=== PATIENT | female | born 1990 | race Caucasian/White ===

== ENCOUNTER → 2017-11-02 14:56 | Outpatient (CLI) | payer OTHER, MEDICAID, SELFPAY ==
[2017-11-03 17:00] LABS: Strep Grp B PCR NEG for Grp B Strep
== END ==
PROVIDERS: Visit Provider Obstetrics & Gynecology
DX: Z34.83 Encounter for supervision of other normal pregnancy, third trimester (principal)
CPT/HCPCS: 87653

== ENCOUNTER 2017-11-19 05:47 | Inpatient (IN) | payer OTHER, MEDICAID, SELFPAY ==
[2017-11-19] VITALS (7 sets, daily range): BP systolic 110–129; BP diastolic 58–75; PULSE 62–69; RESP 16; TEMP 36.1–36.2; O2SAT 95–98
--- NOTE | 2017-11-19 06:39 | PM.PREOP ---
Pre-operative Note Interval Note Pre-op Check: History & Physical Reviewed by Physician
[2017-11-19 07:29] LABS: Add Manual Diff / Slide Review NO; Basophils Percent Auto 0.2 % (0-2); Eosinophils Percent Auto 7.5 % (2-4); Hematocrit 33.6 % (36-46); Hemoglobin 11.8 g/dL (12.0-16.0); Mean Corpuscular HGB Conc 35.1 % (30-36); Mean Corpuscular Hemoglobin 30.1 PG (26-34); Mean Corpuscular Volume 85.9 fL (80-100); Monocytes Percent Auto 6.4 % (3-14); Neutrophils Absolute Auto 6400 /uL (3000-5900); Neutrophils Percent Auto 65.9 % (50-75); Platelet Count 243 X10^3/uL (150-400); Red Blood Cell Count 3.92 X10^6/uL (4.0-5.2); Red Cell Distribution Width 12.9 % (11.6-14.8); White Blood Cell Count 9.8 X10^3/uL (4.5-11.0)
[2017-11-19] MEDS: CEFAZOLIN 2 GM/100 ML FROZ.PIGGY IV (08:10)
--- NOTE | 2017-11-19 08:33 | SUR.OPER ---
Supine on Padded OR bed, head on pillow, safety belt at thigh, arms secured on padded arm boards at <90 degrees abduction. Bump under right buttock. Legs uncrossed with pillow under knees, gel pad to heels, tape over blanket to lower legs.
--- NOTE | 2017-11-19 09:05 | SUR.OPER ---
Healthy boy born at 0833. heart tones 152.
[2017-11-19] MEDS: LACTATED RINGERS 1,000 ML 100 ML IV (10:43)
--- NOTE | 2017-11-19 10:55 | P.OP_ITS ---
Operative Date/Time/Diagnoses - Date of procedure: 11/19/17 Time of procedure: 09:52 Pre-op diagnosis: Intrauterine at estimated gestational age of 39 weeks Previous section x2 Post-op diagnosis: same Procedure: Procedures Operation Date: 11/19/17 07:45 Actual Procedures Side Surgeon p Section - Repeat Aura Moya MD Indications: Estimated gestational age of 39 weeks 2 prior section Surgeon: Aura Moya Equipment Operation Instructor: Marisol Vasquez Anesthesia Type: Spinal (With dermal) Operative Notes Findings: Live male in the vertex presentation Normal uterus, tubes, and ovaries Closure Type: primary Specimen(s): other (Cord blood, placenta) Applied: catheter Estimated blood loss (mL): 500 Blood products transfused: none Procedure in detail: The patient was taken to the operating room where she was placed in the seated position. Spinal anesthesia with Duramorph was administered. The patient was then placed in the dorsal supine position with a leftward tilt. She was prepped and draped in the usual sterile fashion. A timeout was performed. After spinal analgesia was found to be adequate, the previous incision was excised in an elliptical fashion, and the incision was carried down to the underlying layer of fascia. The fascia was nicked in the midline, and the incision extended bilaterally with the Victoria scissors. The superior aspect of the fascial incision was grasped with a Armida clamps, elevated, and the underlying rectus muscles dissected off sharply and bluntly. Attention was then turned to the inferior aspect of this incision which in a similar fashion was grasped with a Leiter clamps, elevated, and the underlying rectus muscles dissected off sharply and bluntly. The rectus muscles were in the midline. The peritoneum was identified, grasped between 2 hemostats, and entered sharply with the Metzenbaum scissors. This incision was extended superiorly and inferiorly with good visualization of the bladder. The bladder blade was inserted. The vesicouterine peritoneum was identified, grasped with the pickup, and entered sharply with the Metzenbaum scissors. This incision was extended bilaterally, and the bladder flap was created digitally. The bladder blade was reinserted. The lower uterine segment was incised in a transverse fashion with the scalpel. Upon entering the amniotic sac there was moderate amount of clear amniotic fluid. The 's head was delivered without difficulty. The nose and mouth were suctioned with bulb suction. The remainder of the body delivered without difficulty. The cord was double clamped and cut. The was handed off to waiting RN and RT. The placenta was delivered manually. The uterus was cleared of all clots and debris. The uterine incision was repaired with #1 chromic in a running interlocking fashion, and a second layer the same suture was used for an imbricating layer. Hemostasis was achieved. The tubes and ovaries were examined and were found to be normal. The gutters were cleared of all clots and debris. The bladder flap was reapproximated using 2-0 Vicryl in a running fashion. The parietal peritoneum was closed using 2-0 Vicryl in a running fashion. The fascia was reapproximated using 0 Vicryl in a running fashion. The subcutaneous layer was copiously irrigated with warm normal saline. 5 simple interrupted sutures of 3-0 Vicryl were placed to reapproximate the subcutaneous layer. The skin was closed with 4-0 undyed Vicryl in a subcuticular fashion. Steri-Strips were placed. An Aquacell dressing was placed. The uterus was expressed of a small amount of old blood. Sponge, lap, and instrument counts were correct x-2. The patient tolerated the procedure well, and was taken to PACU in stable condition. Complications: none Post-operative Condition: stable Disposition: PACU ([facility])
[2017-11-19] MEDS: ONDANSETRON 4 MG/2 ML INJ IV (14:21)
[2017-11-19] MEDS: KETOROLAC 30 MG/ML VIAL IV ×2 (17:30→23:30)
[2017-11-19] MEDS: LANOLIN OINT 7 GM 1 APPLIC TOP (20:03)
[2017-11-20 05:20] LABS: Hematocrit 27.4 % (36-46); Hemoglobin 9.7 g/dL (12.0-16.0)
[2017-11-20] MEDS: KETOROLAC 30 MG/ML VIAL IV (05:54)
[2017-11-20] MEDS: DOCUSATE 250 MG CAPSULE PO (08:38)
[2017-11-20] MEDS: PRENATAL VIT,CALC/IRON/FOLIC 1 TABLET 1 TAB PO (08:38)
[2017-11-20] MEDS: IBUPROFEN 600 MG TABLET PO ×2 (15:44→21:40)
[2017-11-20] MEDS: OXYCODONE/ACETAMINOPHEN 5/325 TABLET 1 TAB PO ×2 (15:46→21:40)
[2017-11-21] MEDS: OXYCODONE/ACETAMINOPHEN 5/325 TABLET 1 TAB PO ×3 (02:10→13:29)
[2017-11-21] MEDS: IBUPROFEN 600 MG TABLET PO ×2 (04:03→13:29)
[2017-11-21] MEDS: PRENATAL VIT,CALC/IRON/FOLIC 1 TABLET 1 TAB PO (09:36)
[2017-11-21] MEDS: DOCUSATE 250 MG CAPSULE PO (09:36)
[2017-11-21 10:04] VITALS: BP 129/75; PULSE 65; RESP 16; TEMP 36.1
--- NOTE | 2017-11-21 13:57 | PM.OBPN.1 ---
Subjective - OB Interval history: Patient has been able to void without the catheter Tolerating a diet. She has showered. going well. Patient comments: no complaints, pain well controlled, tolerating diet and flatus present baby status: doing well feeding status: exclusively breast feeding Date Patient Seen: 11/20/17 Time Patient Seen: 11:30 Exam Vital Signs (past 8 hours): - 11/21/17 10:04 Temperature 97.0 F L Pulse Rate 65 Respiratory Rate 16 Blood Pressure 129/75 H Oxygen Delivery Method Room Air Narrative Exam Narrative: Generally: Patient is sitting up in bed, holding , no acute distress Lungs: Clear to auscultation bilaterally Cardiovascular: Regular rate and rhythm Abdomen: Soft and flat. Good bowel sounds Fundus: Firm at U -1 Incision: Clean dry and intact with Aquacel dressing Extremities: Negative Homans, no edema Objective Labs Result Diagrams: 11/20/17 04:56 Assessment & Plan (1) Status post repeat low transverse section: Status: Acute Assessment and plan: Assessment: 27-year-old 3 para 3 postop day # 1 status post repeat low-transverse section doing well Plan: Continue routine postop care Anticipate discharge 11/21/2017 Current Visit: Yes Plan day: 1 plan OB: routine postop care Time Spent With Patient Total time spent is greater than 50% in coordination of care (as documented) at patient's floor/unit and/or counseling patient: less than 15 minutes
--- NOTE | 2017-11-21 14:01 | PM.OBDS.1 ---
Discharge Providers Date of admission: 11/19/17 05:47 Consults: 11/19/17 13:36 Consult to [employer] Routine Comment: Discharge provider: Aura Moya MD Discharge Date: 11/21/17 Summary Date Patient Seen: 11/21/17 Time Patient Seen: 09:20 Hospital Course: Patient is a 27-year-old 3 para 3 who presented on 11/19/2017 for a scheduled repeat low-transverse section. She underwent the section without complication. Her postoperative course was unremarkable. Hematocrit 27.4. Tolerating a diet. Ambulating without assistance. Voiding without the catheter. Patient has showered. Peripartum Data Delivery Method: Section Procedures: Repeat low-transverse section complications: none Discharge Diagnosis (1) Status post repeat low transverse section: Status: Acute Status at Discharge Functional status at discharge: independent ambulation Overall status at discharge: patient is progressing back to baseline Time Spent with Patient Total time spent providing and/or coordinating discharge services: Less than 30 minutes Objective Labs Result Diagrams: 11/20/17 04:56 Discharge Plan Discharge Plan Patient Disposition: Home, Self-Care Discharge comment: Call with fever, chills or redness or drainage around incision Discharge Med Rec/Prescriptions Prescriptions: New oxycodone-acetaminophen [Percocet] 5-325 mg tablet 2 tab PO Q4-6H PRN (Reason: pain) Qty: 30 RF: 0 ibuprofen 600 mg tablet 600 mg PO QID PRN (Reason: pain) Qty: 30 RF: 2 Continue vit-iron fum-folic ac [Mynatal] 1 EACH capsule 1 cap PO QDAY Qty: 0 RF: 0 Follow up/Referrals: Aura Moya MD [Physician] - 1 Week Provider Discharge Instructions Diet: Diet as Tolerated Activity: No intercourse No heavy lifting Wound Care Report to your healthcare provider any signs of infection, such as:: chills, fever, increased pain and unusual drainage Dressing: Do not remove Visit Report/Discharge Packet Instructions: DI for Visit Report Forms: Stroke Signs & Symptoms Discharge Data Attending Provider: Aura Moya Admit Date/Time: 11/19/17 05:47
== END 2017-11-21 14:25 | disposition home or self-care (01) | DRG 540 ==
PROVIDERS: Admitting Provider Obstetrics & Gynecology; Visit Provider Obstetrics & Gynecology
PROC: 10D00Z2 Extraction of Products of Conception, Extraperitoneal, Open Approach (ICD-10-PCS; CPT 59514; principal; 2017-11-19 07:45)
DX: O34.211 Maternal care for low transverse scar from previous cesarean delivery (principal); Z3A.39 39 weeks gestation of pregnancy; Z37.0 Single live birth
CPT/HCPCS: 36415; 59050; 59514; 85014; 85018; 85025; 86850; 86900; 86901; J0690; J1885; J2274; J2405; J2590

== ENCOUNTER 2018-09-02 17:24 | Emergency (ER) | payer SELFPAY ==
[2018-09-02 17:34] VITALS: BP 122/75; PULSE 60; RESP 15; TEMP 37; O2SAT 100; BMI 18.8
--- NOTE | 2018-09-02 18:05 | ED.EYEPROB ---
HPI - Eye Problem General Chief complaint: Eye Problems Stated complaint: left eye red and puffy Time Seen by Provider: 09/02/18 17:30 Source: patient and family Mode of arrival: ambulatory Limitations: no limitations History of Present Illness HPI Narrative: 27-year-old female nonsmoker without any medical problems presents with her and small child in the chief complaint of redness, irritation and watering to her left. She denies any injury. She denies any suspected foreign body. She denies any exposure to ill persons with similar symptoms. she has not been sick and denies runny nose, sore throat or cough. She denies any eye pain. SHe does wear contacts MD chief complaint: eye redness Onset (ago): hour(s) Onset description: gradual Duration: constant Location: left eye Eye Symptoms: redness, foreign body sensation, itching and blurry vision Mechanism: none Severity: mild Context: contact lens use Treatments Prior to Arrival: none Related Data Patient tetanus UTD: Yes Previous Rx's Medication Instructions Recorded norethindrone 1.5 mg-ethinyl 1 tab PO DAILY #28 tab 04/18/18 estradiol 30 mcg(21)/iron 75 mg(7) tablet polymyxin B sulf-trimethoprim 1 drop EYE-LEFT QID 7 Days ml 09/02/18 Allergies Allergy/AdvReac Type Severity Reaction Status Date / Time No Known Allergies Allergy Verified 01/04/18 15:21 Review of Systems Constitutional Denies chills, Denies fever(s), Denies lethargy and Denies weakness Eyes Reports blurry vision, Denies change in vision, Denies eye discharge, Denies irritation and Denies loss of vision ENT Ears, Nose, Mouth, and Throat: Denies change in voice, Denies neck pain and Denies sore throat Cardiovascular Denies chest pain, Denies irregular heart rhythm, Denies lightheadedness, Denies palpitations, Denies dyspnea, Denies dyspnea on exertion and Denies orthopnea Respiratory Denies cough, Denies dyspnea, Denies dyspnea on exertion and Denies wheezing Gastrointestinal Gastrointestinal: Denies abdominal pain, Denies change in bowel habits, Denies diarrhea, Denies nausea and Denies vomiting Genitourinary Denies hematuria, Denies flank pain, Denies urinary incontinence and Denies urinary urgency Musculoskeletal Denies neck pain Integumentary/Breasts Denies pruritus, Denies erythema, Denies rash and Denies wounds Neurologic Denies confusion, Denies loss of vision and Denies weakness Psychiatric Denies anxiety, Denies confusion, Denies depression, Denies homicidal ideation and Denies suicidal ideation Endocrine Denies palpitations Hematologic/Lymphatic Denies easy bruising Allergic/Immunologic Denies wheezing [facility] Medical History Chicken pox (Resolved 1998) 3 (Resolved) MRSA infection (Resolved 2009) Preeclampsia (Resolved 2013) Preeclampsia, severe (Resolved 2011) Surgical History Anesthesia (Resolved) History of dental surgery (Resolved ) History of tonsillectomy (Resolved 2008) S/P section (Resolved 11/19/17) Status post delivery (Resolved 2011) Status post delivery (Resolved 2013) Family History Brother Age: 31 Asthma Brother Age: 27 Hypertension Father Age: 65 Hypertension Grandfather Age: 82 Skin cancer Diabetes mellitus Social History Smoking Status: Never smoker Family History Brother Age: 31 Asthma Brother Age: 27 Hypertension Father Age: 65 Hypertension Grandfather Age: 82 Skin cancer Diabetes mellitus Social History Smoking Status: Never smoker Exam Narrative Exam Narrative: GEN: AOx3 and in mild distress EYES: Pupils are equal, round, and reactive to light and accommodation. Extraoccular muscles are intact bilaterally. Scleral injection of L eye with minimal chemosis. Pressure 22mmHg. Eye visualized under molina lamp, no FB noted. Upper lid everted. No fluorescein uptake CHEST: Lungs are clear to auscultation bilaterally and free of wheezes, rales, or rhonchi. Heart rate is regular rhythm, there are no murmurs, clicks, rubs, or gallops. There is no chest wall tenderness. ABD: Abdomen is soft and nontender. There is no guarding or rebound. Bowel sounds are normal in all 4 quadrants. There is no mass or organomegaly. EXT: Full painless ROM of all extremities with no loss of sensation or strength. SKIN: Warm, pink, and dry. No erythema or rash Initial Vital Signs Initial Vital Signs: Vital Signs Temperature 98.6 F 09/02/18 17:34 Pulse Rate 60 09/02/18 17:34 Respiratory Rate 15 09/02/18 17:34 Blood Pressure 122/75 09/02/18 17:34 Pulse Oximetry 100 09/02/18 17:34 Course Vital Signs - 8 hr 09/02/18 17:34 Temperature 98.6 F Pulse Rate 60 Respiratory Rate 15 Blood Pressure 122/75 Pulse Oximetry 100 MDM - Eye Problem Differential Diagnosis Likely conjunctivitis, hyphema, subconjunctival hemorrhage, glaucoma, corneal ulcer and ruptured globe MDM Narrative Medical decision making narrative: Multiple etiologies for patient's symptoms considered including: [Acute angle closure glaucoma, corneal ulcer, conjunctivitis, preseptal cellulitis corneal abrasion, corneal foreign body versus other] Patient's symptoms improved or duration of stay with above-stated therapies. Findings and discharge diagnosis discussed with patient/family followed by verbalization of understanding Return precautions discussed with patient/family whom verbalize understanding. Discharge Plan Departure Patient Disposition: Home Clinical Impression: Chemosis of left conjunctiva Discharge Date/Time: 09/02/18 18:07 Instructions: Conjunctivitis Activity Restrictions/Additional Instructions: *You have been diagnosed with [left eye chemosis and possible conjunctivitis. We considered infection of the skin surrounding her eye but thought it less likely given lack of warmth or pain ] *What to do: *Take medications as directed * please follow-up with the Ophthal[facility] at [facility]. You may present directly to the clinic at 8:30 a.m. in the morning or call for a better idea when they conceived tomorrow *Return to ER if you should have any new, worsening or concerning symptoms *Do not wear contacts until seen by ophtho Prescriptions: New polymyxin B sulf-trimethoprim 10,000 unit- 1 mg/mL drops 1 drop EYE-LEFT QID 7 Days RF: 0 No Action norethindrone-e.estradiol-iron [Loestrin Fe 1.5/30 (28-Day)] 1.5 mg-30 mcg (21)/75 mg (7) tablet 1 tab PO DAILY Qty: 28 RF: 11 Referrals: Faviola Carvalho MD [Physician] -
== END 2018-09-02 18:07 | disposition home or self-care (01) ==
PROVIDERS: Emergency Provider Emergency Medicine
DX: H11.422 Conjunctival edema, left eye (principal)
CPT/HCPCS: 99282; 99283

== ENCOUNTER → 2020-07-01 09:50 | Outpatient (CLI) | payer OTHER, MEDICAID, SELFPAY ==
[2020-07-01 12:16] LABS: HCG Quantitative /Beta subunit 37291 mIU/mL
== END ==
PROVIDERS: PCP Family Medicine; Referring Provider Obstetrics & Gynecology; Visit Provider Obstetrics & Gynecology
DX: Z34.81 Encounter for supervision of other normal pregnancy, first trimester (principal)
CPT/HCPCS: 36415; 84702

== ENCOUNTER → 2020-07-22 12:30 | Outpatient (CLI) | payer OTHER, MEDICAID, SELFPAY ==
[2020-07-22 13:58] LABS: Add Manual Diff / Slide Review NO; Basophils Absolute Auto 0 /uL (0-100); Basophils Percent Auto 0.3 % (0-2); Eosinophils Absolute Auto 500 /uL (0-450); Eosinophils Percent Auto 5.8 % (2-4); Hematocrit 38.2 % (36-46); Hemoglobin 13.2 g/dL (12.0-16.0); Lymphocytes Absolute Auto 1600 /uL (1100-4500); Lymphocytes Percent Auto 18.1 % (25-40); Mean Corpuscular HGB Conc 34.6 % (30-36); Mean Corpuscular Hemoglobin 29.5 PG (26-34); Mean Corpuscular Volume 85.3 fL (80-100); Monocytes Absolute Auto 500 /uL (0-900); Monocytes Percent Auto 6.1 % (3-14); Neutrophils Absolute Auto 6200 /uL (1500-7000); Neutrophils Percent Auto 69.7 % (50-75); Platelet Count 292 X10^3/uL (150-400); Red Blood Cell Count 4.47 X10^6/uL (4.0-5.2); Red Cell Distribution Width 13.6 % (11.6-14.8); White Blood Cell Count 8.9 X10^3/uL (4.5-11.0)
[2020-07-22 14:11] LABS: Appearance Urine UA CLEAR; Bilirubin Urine UA NEGATIVE (NEGATIVE); Color Urine UA YELLOW; Glucose Urine UA NEGATIVE (Negative); Ketones Urine UA NEGATIVE (NEGATIVE); Leukocyte Esterase Urine UA 1+ (NEGATIVE); Nitrite Urine UA NEGATIVE (Negative); Occult Blood Urine UA NEGATIVE (Negative); Protein Urine UA NEGATIVE (Negative); Urobilinogen Urine UA 0.2 E.U./dL (0.2)
[2020-07-22 14:31] LABS: Bacteria Urine Few (2-10); RBC Urine None Seen (0-5/HPF); Squamous Epithelial Cell Urine 1-5 /HPF (0-5/HPF); Urine Comments CULTURE ORDERED; WBC Urine 0-1/HPF (0-5/HPF)
[2020-07-22 16:31] LABS: Hepatitis B Surface Antigen NEGATIVE s/c (NEGATIVE); Rubella Antibody IgG 31.2 IU/mL (>15)
[2020-07-22 16:42] LABS: HIV 1 & 2 Ab/Ag 4th Gen Combo NEGATIVE (NEGATIVE); Hep C Virus Ab w/Reflex Quant NEGATIVE s/c (NEGATIVE)
[2020-07-23 05:36] LABS: Varicella IgG Antibody 869 index (Immune >165)
[2020-07-23 08:16] LABS: RPR Screen Non Reactive (Non Reactive)
== END ==
PROVIDERS: PCP Family Medicine; Referring Provider Obstetrics & Gynecology; Visit Provider Obstetrics & Gynecology
DX: Z34.81 Encounter for supervision of other normal pregnancy, first trimester (principal)
CPT/HCPCS: 36415; 80055; 81003; 81015; 86787; 86803; 86850; 86900; 86901; 87086; 87389

== ENCOUNTER → 2020-08-19 11:45 | Outpatient (CLI) | payer OTHER, MEDICAID, SELFPAY ==
[2020-08-21 04:16] LABS: Chlamydia trachomatis NAA Negative (Negative); Neisseria gonorrhoeae NAA Negative (Negative)
== END ==
PROVIDERS: PCP Family Medicine; Visit Provider Obstetrics & Gynecology
DX: O34.219 Maternal care for unspecified type scar from previous cesarean delivery (principal); Z3A.13 13 weeks gestation of pregnancy
CPT/HCPCS: 87491; 87591

== ENCOUNTER → 2020-09-16 14:14 | Outpatient (CLI) | payer OTHER, MEDICAID, SELFPAY ==
[2020-09-18 21:52] LABS: AFP, Serum 46.7 ng/mL (.); Estriol, Free 1.96 ng/mL (.); Inhibin A, Dimeric 76.45 pg/mL (.); Inhibin A, MoM 0.46 (.); Maternal Ethnicity Caucasian (.); Maternal Weight 134 lbs (.); Number of Fetuses No (.); OSBR Risk 1 IN 10000 (.); Results Report (.); Test Results *Screen Negative* (.); hCG, MoM 0.87 (.); hCG, Serum 27451 mIU/mL (.)
== END ==
PROVIDERS: PCP Family Medicine; Referring Provider Obstetrics & Gynecology; Visit Provider Obstetrics & Gynecology
DX: Z34.82 Encounter for supervision of other normal pregnancy, second trimester (principal); Z3A.17 17 weeks gestation of pregnancy
CPT/HCPCS: 36415; 82105; 82677; 84702; 86336

== ENCOUNTER → 2020-10-07 09:31 | Outpatient (CLI) | payer OTHER, MEDICAID, SELFPAY ==
--- NOTE | 2020-10-07 09:32 | DI.US.S_ITS ---
PROCEDURE: US OB >= 14 WEEKS FETUS INDICATIONS: ANATOMY OUTSIDE/PRIOR DATING DATA: Last menstrual period (LMP): May 15, 2020. LMP-based estimated date of delivery (ABIGAIL): February 19, 2021. First dating scan (date and location): July 22, 2020. Estimated date of delivery (ABIGAIL) from first dating scan: February 15, 2021. TECHNIQUE: Real-time scanning was performed of the fetus, with image documentation and biometric measurements. Endovaginal scanning: Performed COMPARISON: None. FINDINGS: General: A single living intrauterine gestation is present. Presentation: Breech Placenta: Placental position is anterior, without previa. Amniotic fluid index: 14.2 cm, normal range is 5-24 cm. heart rate: 133 beats per minute. Maternal cervical canal: Closed and 4.5 cm long. Normal lower limit is 2.5 cm. biometrics: Biparietal diameter: 21 weeks 0 days Head circumference: 21 weeks 0 days Abdominal circumference: 21 weeks 0 days Femur length: 20 weeks 6 days Estimated gestational age from initial scan: 21 weeks 2 days. Composite gestational age from present scan: 21 weeks 0 days Estimated weight and percentile: 394 grams; 31st percentile Measurement variability for biometric dating: +/- 7 days from 14 weeks to 15 weeks 6 days gestation, +/- 10 days from 16 weeks to 21 weeks 6 days gestation, +/- 2 weeks from 22 weeks to 27 weeks 6 days gestation, +/- 3 weeks for 28 weeks gestation or later. weight reference: 4500 g or EFW >90/95% is considered macrosomia or large for gestational age. EFW <10% is small for gestational age. EFW 5% or less is considered intra-uterine growth restriction. Anatomic survey: Neuro: Ventricles are non-dilated at less than 10 mm. Cisterna magna is normal at 3-11 mm. Cerebellum is normal in size and morphology. Nuchal skin fold: Normal at less than 6 mm between 14-21 weeks gestational age. Face: Nose and lips, facial profile are normal. Spine: No evidence for spina bifida. Heart: 4-chambered heart is present, with normal ventricular outflow tracts. Diaphragm: Diaphragm is intact. Stomach: Left-sided stomach is present. Kidneys: No hydronephrosis. Normal is less than 5 mm in 2nd trimester, less than 7 mm in 3rd trimester. Cord: 3-vessel cord has orthotopic insertion. Bladder: Normal in size. Extremities: All 4 extremities identified. IMPRESSION: 1. Single living intrauterine with appropriate interval growth. 2. Normal amniotic fluid index. 3. Normal anatomic survey. Dictated by: Antonella Samuel MD, PhD on 10/07/2020 at 16:39 Approved by: Antonella Samuel MD, PhD on 10/07/2020 at 16:51
== END ==
PROVIDERS: PCP Family Medicine; Referring Provider Obstetrics & Gynecology; Visit Provider Obstetrics & Gynecology
DX: Z34.82 Encounter for supervision of other normal pregnancy, second trimester (principal); Z3A.21 21 weeks gestation of pregnancy
CPT/HCPCS: 76811

== ENCOUNTER → 2020-11-04 10:30 | Outpatient (CLI) | payer OTHER, MEDICAID, SELFPAY ==
[2020-11-04 13:08] LABS: Hematocrit 34.5 % (36-46); Hemoglobin 12.1 g/dL (12.0-16.0)
[2020-11-04 13:22] LABS: GTT (PREG) 1 Hour PP 50gm Dose 96 mg/dL (76-139)
== END ==
PROVIDERS: PCP Family Medicine; Referring Provider Obstetrics & Gynecology; Visit Provider Obstetrics & Gynecology
DX: Z34.82 Encounter for supervision of other normal pregnancy, second trimester (principal); Z3A.26 26 weeks gestation of pregnancy
CPT/HCPCS: 36415; 82950; 85014; 85018

== ENCOUNTER → 2021-01-28 16:13 | Outpatient (CLI) | payer OTHER, MEDICAID, SELFPAY ==
[2021-01-29 11:23] LABS: Strep Grp B PCR POS for Grp B Strep
== END ==
PROVIDERS: PCP Family Medicine; Referring Provider Obstetrics & Gynecology; Visit Provider Obstetrics & Gynecology
DX: Z34.83 Encounter for supervision of other normal pregnancy, third trimester (principal); Z3A.36 36 weeks gestation of pregnancy
CPT/HCPCS: 87653

== ENCOUNTER → 2021-02-12 08:11 | Outpatient (CLI) | payer OTHER, MEDICAID, SELFPAY ==
[2021-02-12 09:13] LABS: COVID19 -Nasal RAPID Negative (Negative)
== END ==
PROVIDERS: PCP Family Medicine; Visit Provider Obstetrics & Gynecology
DX: Z20.822 Contact with and (suspected) exposure to COVID-19 (principal)
CPT/HCPCS: 87635; C9803

== ENCOUNTER 2021-02-13 05:43 | Inpatient (IN) | payer OTHER, MEDICAID, SELFPAY ==
--- NOTE | 2021-02-13 07:52 | P.HPOB_ITS ---
OB HPI Date/Time Date of admission: 02/13/21 Date Patient Seen: 02/13/21 Time Patient Seen: 07:52 History of Present Condition Chief complaint: INPT : 4 Para: 3 Estimated Date of Delivery: 02/19/21 Estimated Gestational Age (weeks): 39+1 Narrative: Stefanie Rabago is a 30 year old female 4 para 3 with 3 prior sections who presents for repeat . History of Present care: good care Dating criteria: LMP confirmed by 1st trimester US Ultrasounds: normal 1st trimester US and normal mid trimester US Obstetrical complications: none Medical complications: none Prior (ies) History: 3 C Sections [facility] Medical History (Updated 07/19/20 @ 16:05 by Salena Thakur RN) Chicken pox (1998) MRSA infection (2009) Preeclampsia (2013) Preeclampsia, severe (2011) UTI (urinary tract infection) Surgical History (Updated 07/22/20 @ 13:35 by Aura Moya MD) Anesthesia History of dental surgery (~2009) History of tonsillectomy (2008) S/P section (11/19/17) Status post delivery (2011) Status post delivery (2013) Family History Brother Age: 33 Asthma Brother Age: 29 Hypertension Father Age: 67 Hypertension Grandfather Age: 84 Skin cancer Diabetes mellitus Social History marital status: number of children: 3 household members: spouse and children lives independently: Yes caregiver/support person: No occupational status: employed Smoking Status: Never smoker Meds Home Medications and Allergies Home Medications Medication Instructions Recorded Confirmed Type prenat.vits,sami,ant-aize-tezac 1 tab PO DAILY 07/17/20 02/05/21 History Allergies Allergy/AdvReac Type Severity Reaction Status Date / Time No Known Allergies Allergy Verified 02/05/21 08:19 Exam Narrative Exam Narrative: HEENT: No thyromegaly, no anterior cervical or supraclavicular lymphadenopathy. Lungs:Clear to auscultation bilaterally, no wheezes. Cardiovascular: Regular rate and rhythm, no murmurs, rubs, or gallops. Abdomen: Well-healed Pfannenstiel scars. No hepatosplenomegaly. No masses palpable. Fundal height: 38 cm Estimated weight: 7 lb Extremities: No edema Assessment and Plan Assessment and Plan Assessment and Plan narrative: Assessment: 30-year-old 4 para 3 at 39-,1/7 weeks gestation 3 previous sections Plan: Repeat low-transverse section The risks, benefits, and alternatives to the procedure were explained to the patient. The risks including bleeding, infection, injury to the bowel, bladder, or ureters. She understands these risks and agrees to proceed. A full par Q was held. Consent form was signed in the office. Time Spent with Patient Total time spent with greater than 50% in coordination of care (as documented) at patient's floor/unit and/or counseling patient:: 15-24 minutes
[2021-02-13] MEDS: CEFAZOLIN 1 GM VIAL 2 GM IV (08:11)
--- NOTE | 2021-02-13 08:48 | SUR.OPER ---
FHT 89 live male born at 08[birth year]
--- NOTE | 2021-02-13 09:30 | PM.PREOP ---
Pre-operative Note COVID-19 COVID-19 status: Negative Result date/Date tested (Pos, Neg/Pending): 02/12/21 Interval Note History & Physical reviewed/Exam performed by Physician: Yes Changes to H&P: No H&P completed within 30 days and has changed as indicated here:: 02/13/21
--- NOTE | 2021-02-13 09:31 | PM.OBCS.1 ---
Operative Date/Time/Diagnoses Date of procedure: 02/13/21 Time of procedure: 09:31 Pre-op diagnosis: Thirty-nine weeks gestation Three prior sections Post-op diagnosis: same Procedure & Clinicians Procedure: Repeat low-transverse section Lysis of adhesions Same procedure as scheduled: Yes Indications: 39 weeks gestation Three prior section Surgeon: Aura Moya Click Yes if Unassisted: No Dry Kiln Feeder: Ashwini Manzo Reason for Dry Kiln Feeder: Dry Kiln Feeder responsible for retraction and cutting of suture. Assisted with fundal pressure in delivering the baby. Assisted with retraction and cutting suture on closure of the abdomen. Closed of the contralateral fascia. Anesthesia Type: Spinal (With Duramorph) Operative Notes Findings: Live male infant in the TRISHA presentation Normal uterus, tubes, and ovaries On the left side there was omentum to anterior abdominal wall adhesions Closure Type: primary Specimen(s): cord blood and placenta Intraoperative meds administered: Acetaminophen, Duramorph, Ketorolac and Pitocin Applied: Catheter Estimated Blood Loss (mL): 500 Blood products transfused: none Procedure in detail: The patient was taken to the operating room where she was placed in the seated position. Spinal anesthesia with Duramorph was administered. The patient was then placed in the dorsal supine position with a leftward tilt. She was prepped and draped in the usual sterile fashion. A timeout was performed. After spinal analgesia was found to be adequate, the previous incision was excised in an elliptical fashion and the incision carried through to the underlying layer of fascia. The fascia was nicked in the midline, and the incision extended bilaterally with the Victoria scissors. The superior aspect of the fascial incision was grasped with a Pacolet clamps, elevated, and the underlying rectus muscles dissected off sharply and bluntly. Attention was then turned to the inferior aspect of this incision which in a similar fashion was grasped with a Armida clamps, elevated, and the underlying rectus muscles dissected off sharply and bluntly. The rectus muscles were in the midline. The peritoneum was identified, grasped between 2 hemostats, and entered sharply with the Metzenbaum scissors. This incision was extended superiorly and inferiorly with good visualization of the bladder. The bladder blade was inserted. The vesicouterine peritoneum was identified, grasped with the pickup, and entered sharply with the Metzenbaum scissors. This incision was extended bilaterally, and the bladder flap was created digitally. The bladder blade was reinserted. The lower uterine segment was found to be very thin. The lower uterine segment was incised in a transverse fashion with the scalpel. Upon entering the amniotic sac there was moderate amount of clear amniotic fluid. The 's head was delivered with vacuum assistance. The nose and mouth were suctioned with bulb suction. The remainder of the body delivered without difficulty. The cord was double clamped and cut. The infant was handed off to waiting RN and RT. The placenta was delivered manually. The uterus was cleared of all clots and debris. The uterine incision was repaired with #1 chromic in a running interlocking fashion, and a second layer the same suture was used for an imbricating layer. Hemostasis was achieved. The tubes and ovaries were examined and were found to be normal. The gutters were cleared of all clots and debris. The bladder flap was reapproximated using 2-0 Vicryl in a running fashion. The parietal peritoneum was closed using 2-0 Vicryl in a running fashion. The fascia was reapproximated using 0 Vicryl in a running fashion. The subcutaneous layer was copiously irrigated with warm normal saline. 5 simple interrupted sutures of 3-0 Vicryl were placed to reapproximate the subcutaneous layer. The skin was closed with 4-0 Monocryl in a subcuticular fashion. Steri-Strips were placed. An Aquacel dressing was placed. The uterus was expressed of a small amount of old blood. Sponge, lap, and instrument counts were correct x-2. The patient tolerated the procedure well, and was taken to PACU in stable condition. Complications: none Baby 1: Gender: Male Presentation: vertex Position: Left Occiput Anterior Placental Delivery Description: Spontaneous and Manual Removal Cord Vessel Description: 3 Vessels, Nuchal Cord, Loose and Reduced score (1 min): 8 score (5 min): 9 weight: 8 lb 3 oz Post-operative Condition: stable Disposition: PACU Aftercare: routine postop
[2021-02-13 09:35] VITALS: BP 122/72; PULSE 58; RESP 16; O2SAT 100
[2021-02-13 09:35] LABS: Add Manual Diff / Slide Review NO; Basophils Absolute Auto 0 /uL (0-100); Basophils Percent Auto 0.4 % (0-2); Eosinophils Absolute Auto 600 /uL (0-450); Eosinophils Percent Auto 6.6 % (2-4); Hematocrit 37.1 % (36-46); Hemoglobin 12.7 g/dL (12.0-16.0); Lymphocytes Absolute Auto 1900 /uL (1100-4500); Lymphocytes Percent Auto 22.3 % (25-40); Mean Corpuscular HGB Conc 34.3 % (30-36); Mean Corpuscular Hemoglobin 30.5 PG (26-34); Mean Corpuscular Volume 88.9 fL (80-100); Monocytes Absolute Auto 500 /uL (0-900); Neutrophils Absolute Auto 5700 /uL (1500-7000); Neutrophils Percent Auto 64.7 % (50-75); Platelet Count 270 X10^3/uL (150-400); Red Blood Cell Count 4.18 X10^6/uL (4.0-5.2); Red Cell Distribution Width 13.6 % (11.6-14.8); White Blood Cell Count 8.7 X10^3/uL (4.5-11.0)
[2021-02-13 09:36] VITALS: BP 124/68; PULSE 56; RESP 16; TEMP 36.2; O2SAT 100
[2021-02-13 09:40] VITALS: BP 120/73; PULSE 55; RESP 16; O2SAT 100
[2021-02-13 09:45] VITALS: BP 117/75; PULSE 55; RESP 16; O2SAT 100
[2021-02-13 09:50] VITALS: BP 118/74; PULSE 57; RESP 16; O2SAT 100
--- NOTE | 2021-02-13 10:17 | SUR.PHASEI ---
0950-report to [facility] New in center. patient stable and ready for transfer.
[2021-02-13] MEDS: LACTATED RINGERS 1,000 ML 1000 ML IV (12:22)
[2021-02-13 15:25] VITALS: TEMP 35.8
[2021-02-13] MEDS: KETOROLAC 30 MG/ML VIAL IV ×2 (15:25→21:18)
[2021-02-13] MEDS: ACETAMINOPHEN 325 MG TABLET 650 MG PO (21:18)
[2021-02-14] MEDS: KETOROLAC 30 MG/ML VIAL IV (03:10)
[2021-02-14] MEDS: ACETAMINOPHEN 325 MG TABLET 650 MG PO ×2 (03:10→09:27)
[2021-02-14 05:50] LABS: Hematocrit 33.2 % (36-46); Hemoglobin 11.5 g/dL (12.0-16.0)
[2021-02-14 09:25] VITALS: TEMP 37.2
[2021-02-14] MEDS: IBUPROFEN 600 MG TABLET PO (09:25)
[2021-02-14] MEDS: DOCUSATE 100 MG CAPSULE 200 MG PO (09:25)
[2021-02-14] MEDS: PRENATAL VIT,CALC/IRON/FOLIC 1 TABLET 1 TAB PO (09:26)
[2021-02-14 09:27] VITALS: TEMP 37.2
[2021-02-14 11:20] VITALS: BP 118/74; PULSE 57; RESP 16; TEMP 37.2
--- NOTE | 2021-02-16 17:40 | P.DS_ITS ---
Discharge Providers Provider Date of admission: 02/13/21 05:43 Discharge Date: 02/14/21 Primary care physician: Marisol Vasquez DO Consults: 02/13/21 15:17 Consult to [employer]icated Truck [employer] Routine Comment: Discharge provider: Aura Moya MD Summary Hospital Course Date Patient Seen: 02/14/21 Time Patient Seen: 11:00 Diagnoses: 39 weeks gestation 3 previous sections Repeat low-transverse section Hospital Course: Patient is a 30-year-old 4 para 4 who presented on February 13, 2021 for a scheduled repeat low-transverse section. She underwent this procedure without complication. Her postoperative course was unremarkable. On postop day # 1 her Major catheter was removed and she was able to void without difficulty. She ambulated independently. Her pain was well controlled. was going well. Her bleeding was tapering. She was discharged home on postop day # 1. Peripartum Data Infant Delivery Method: Section Laceration Description: None Episiotomy description: None Procedures: Spinal anesthesia Repeat low-transverse section complications: none [place] 1: Gender: Male Disposition of : home Status at Discharge Cognitive/behavioral status at discharge: oriented Functional status at discharge: independent ambulation Overall status at discharge: patient is progressing back to baseline Time Spent with Patient Time attestation: Total time spent providing and/or coordinating discharge services: Time spent: Less than 30 minutes Objective Labs Result Diagrams: 02/14/21 05:38 Exam Vital Signs (past 8 hours): Oxygen Delivery Method Room Air Narrative Exam Narrative: Generally: Patient is sitting up in bed, holding infant, no acute distress Lungs: Clear to auscultation bilaterally Cardiovascular: Regular rate and rhythm Fundus: Firm at U-1 Incision: Clean dry and intact with Aquacel dressing Extremities: Negative Homans, no edema Discharge Plan Discharge Plan Patient Disposition: Home Provider Discharge Comment: Call with fever, chills, or redness or drainage around the incision Tylenol 650 mg every 6 hours as needed Ibuprofen 600 mg every 6 hours as needed Stool softener as needed Discharge orders & Medications Prescriptions: New oxycodone 5 mg tablet 5 mg PO Q4H PRN (Reason: pain) Qty: 20 RF: 0 Continued prenat.vits,sami,[id number] Tablet 1 tab PO DAILY RF: 0 Follow up/Referrals: Aura Moya MD [Physician] - 1 Week (Aquacel dressing removal in [address] Moya on February 25 at 2:45pm. check-up on March 25 at 1:30pm. If you have any questions/concerns or need to reschedule please call . ) Diet/Activity/Treatments Diet: Regular Activity: No heavy lifting Skin/Wound/Dressing Care Report to your healthcare provider any signs of infection, such as:: chills, fever, increased pain, unusual drainage and unusual redness Dressing: Do not remove Visit Report/Discharge Packet Instructions: Depression, DI for , DI for Prescription Opioid Use Stand Alone Forms: Discharge: Care Discharge Data Primary Care Provider: Marisol Vasquez
== END 2021-02-14 14:34 | disposition home or self-care (01) | DRG 540 ==
PROVIDERS: Admitting Provider Obstetrics & Gynecology; PCP Family Medicine; Referring Provider Obstetrics & Gynecology; Visit Provider Obstetrics & Gynecology
PROC: 10D00Z1 Extraction of Products of Conception, Low, Open Approach (ICD-10-PCS; CPT 59514; principal; 2021-02-13 07:45)
DX: O34.211 Maternal care for low transverse scar from previous cesarean delivery (principal); Z3A.39 39 weeks gestation of pregnancy; Z37.0 Single live birth
CPT/HCPCS: 36415; 59050; 59514; 85014; 85018; 85025; 86850; 86900; 86901; J0690; J1100; J1885; J2274; J2405; J2590; J2704